=== PATIENT | female | born 1940 | race Caucasian/White ===

== ENCOUNTER 2017-09-19 12:37 | Outpatient (CLI) | payer MEDICARE, BC ==
--- NOTE | 2017-09-19 13:10 | RAD ---
LUMBAR SPINE FOUR VIEWS INCLUDING FLEXION AND EXTENSION LATERAL VIEWS: History: 77-year-old female with history of lumbar radiculopathy with low back pain and right sided leg pain. FINDINGS: Minimal levoscoliosis of the upper lumbar/lower thoracic vertebral column with significant multilevel disc osteophytosis and facet arthrosis. No significant abnormal translation between flexion and exte nsion. IMPRESSION: Extensive spondylosis. Very mild stable anterolisthesis of L4 on L5 without abnormal translation betw een flexion and extension. Bony demineralization. Levoscoliosis upper lumbar/lower thoracic vertebral column. POS: [facility]
--- NOTE | 2017-09-19 14:57 | MRI ---
MRI OF THE LUMBAR SPINE WITHOUT CONTRAST: Date: 09/19/17 COMPARISON: None. HISTORY: Low back pain with right lower extremity radiculopathy. TECHNIQUE: Multiplanar, multisequence MR imaging of the lumbar spine is provided without contrast. FINDINGS: The sagittal STIR imaging demonstrates no focal area of osseous marrow edema. There is increased T2 s ignal posterior to the facet joint on the left at L4-5, likely degenerative in nature. There is no significant anterolisthesis or retrolisthesis noted. Assuming five lumbar-type vertebral bodies, with the conus medullaris terminating at T12-L1. T12-L1: There is facet hypertrophy on the right with ligamentum flavum hypertrophy. Intervertebral disc heigh t and signal intensity is within normal limits with no significant central canal or neural foraminal stenosis. L1-2: Mild bilateral facet hypertrophy. Intervertebral disc height and signal intensity is within normal li mits with no significant central canal or neural foraminal stenosis. L2-3: Moderate bilateral facet hypertrophy. There is disc space narrowing, disc desiccation, and mild disc bulge. No significant central canal stenosis or neural foraminal stenosis. L3-4: Mild bilateral facet hypertrophy. There is disc space narrowing, disc desiccation, and disc bulge wit h a small foraminal disc protrusion on the left. There is no significant central canal or neural fora so stenosis. L4-5: Moderate bilateral facet hypertrophy and hypertrophy of the ligamentum flavum. There is disc space na rrowing and disc desiccation with disc bulge noted. There is a disc herniation in the right paracentr al region causing significant right lateral recess stenosis. There is moderate central canal stenosis . No significant neural foraminal stenosis. L5-S1: Mild bilateral facet hypertrophy. There is disc space narrowing, disc desiccation, and disc bulge. Th ere is mild neural foraminal stenosis on the left. There is no significant central canal or right janae ral foraminal stenosis. Imaged retroperitoneal structures appear grossly unremarkable. IMPRESSION: Multilevel degenerative change within the lumbar spine as detailed above. The most significant findin g is a right paracentral disc herniation at L4-5 with associated right lateral recess stenosis. POS: [facility]
== END 2017-09-19 12:38 | disposition home or self-care (01) ==
LOC: TBSIIMAG 12:37
PROVIDERS: ATTEND Surgery
DX: M47.26 Other spondylosis with radiculopathy, lumbar region (principal); M41.9 Scoliosis, unspecified; M43.16 Spondylolisthesis, lumbar region; M81.0 Age-related osteoporosis without current pathological fracture; M51.16 Intervertebral disc disorders with radiculopathy, lumbar region
CPT/HCPCS: 72110; 72148

== ENCOUNTER 2018-05-17 00:33 | Outpatient (CLI) | payer MEDICARE, BC ==
[2018-05-17 14:55] LABS: Hemoglobin 13.3 g/dL (12.0-16.0); Mean Corpuscular HGB CONC 32.3 g/dL (32.0-36.0); Mean Corpuscular Hemoglobin 29.9 pg (27.0-31.0); Mean Corpuscular Volume 92.6 fL (78.0-98.0); Mean Platelet Volume 6.4 fL (7.4-10.4); Platelet Count 252 thou/uL (130-400); RBC Distribution Width 11.4 % (11.5-14.5); Red Blood Cell (RBC) Count 4.46 mill/uL (4.20-5.40); White Blood Cell (WBC) Count 5.4 thou/uL (4.8-10.8)
[2018-05-17 15:00] LABS: PTT 32.6 SEC (22.9-36.1); Prothrombin Time 13.2 SEC (12.0-14.7)
[2018-05-17 15:20] LABS: Anion Gap 15 mmol/L (10-20); BUN (Urea Nitrogen) 18 mg/dL (9.8-20.1); Calc. Creatinine Clearance 0 mL/min (70-130); Calcium 9.3 mg/dL (7.8-10.44); Carbon Dioxide 21 mmol/L (23-31); Chloride 105 mmol/L (98-107); Estimated GFR-MDRD 66; Glucose 142 mg/dL (83-110); Potassium 3.9 mmol/L (3.5-5.1); Sodium 137 mmol/L (136-145)
--- NOTE | 2018-05-18 07:50 | EKG ---
Test Reason : Blood Pressure : / mmHG Vent. Rate : 070 BPM Atrial Rate : 070 BPM P-R Int : 138 ms QRS Dur : 076 ms QT Int : 396 ms P-R-T Axes : 060 043 036 degrees QTc Int : 427 ms Normal sinus rhythm Possible Left atrial enlargement ST abnormality, possible digitalis effect Abnormal ECG No previous ECGs available Confirmed by YOLA GARDINER ([id number]) on 05/18/2018 7:50:18 AM Referred By: FELISHA Confirmed By:YOLA GARDINER
== END 2018-05-17 00:34 | disposition home or self-care (01) ==
LOC: LABBT 00:33
PROVIDERS: ATTEND Surgery
DX: Z01.818 Encounter for other preprocedural examination (principal); M54.16 Radiculopathy, lumbar region; M48.061 Spinal stenosis, lumbar region without neurogenic claudication
CPT/HCPCS: 80048; 85027; 85610; 85730; 93005; 93010

== ENCOUNTER 2018-06-22 11:32 | Day surgery (SDC) | payer MEDICARE, BC ==
[2018-05-17 13:06] VITALS: BMI 21.8
[2018-06-22] MEDS ORDERED: Fentanyl 100 MCG/2 ML VIAL ONE ×4 (11:51→15:36)
[2018-06-22 12:01] LABS: #Basophils 0.1 thou/uL (0.0-0.2); #Eosinphils 0.3 thou/uL (0.0-0.7); #Lymphocytes 1.6 thou/uL (1.20-3.40); #Monocytes 0.6 thou/uL (0.11-0.59); #Neutrophils 3.2 thou/uL (1.40-6.50); %Basophils 1.1 % (0.0-1.0); %Eosinophils 5.3 % (0.0-10.0); %Lymphocytes 28.3 % (21.0-51.0); %Monocytes 9.7 % (0.0-10.0); %Neutrophils 55.7 % (42.0-75.0); Hemoglobin 13.5 g/dL (12.0-16.0); Mean Corpuscular HGB CONC 32.5 g/dL (32.0-36.0); Mean Corpuscular Hemoglobin 30.1 pg (27.0-31.0); Mean Corpuscular Volume 92.5 fL (78.0-98.0); Mean Platelet Volume 5.9 fL (7.4-10.4); Platelet Count 211 thou/uL (130-400); RBC Distribution Width 11.1 % (11.5-14.5); Red Blood Cell (RBC) Count 4.47 mill/uL (4.20-5.40); White Blood Cell (WBC) Count 5.7 thou/uL (4.8-10.8)
[2018-06-22 12:07] LABS: Prothrombin Time 13.1 SEC (12.0-14.7)
[2018-06-22 12:18] LABS: Anion Gap 11 mmol/L (10-20); BUN (Urea Nitrogen) 16 mg/dL (9.8-20.1); Calc. Creatinine Clearance 53 mL/min (70-130); Calcium 9.4 mg/dL (7.8-10.44); Carbon Dioxide 27 mmol/L (23-31); Chloride 105 mmol/L (98-107); Estimated GFR-MDRD 66; Glucose 93 mg/dL (83-110); Potassium 4.1 mmol/L (3.5-5.1); Sodium 139 mmol/L (136-145)
[2018-06-22] MEDS ORDERED: Bacitracin Zinc Ointment 30 gm TUBE ONE (12:36)
[2018-06-22] MEDS ORDERED: Sodium Chloride 0.9% 10 ML ONE (12:36)
[2018-06-22] MEDS ORDERED: Thrombin 5000 UNITS/5 ML VIAL ONE (12:36)
--- NOTE | 2018-06-22 12:43 | PRG ---
DATE OF SERVICE: 06/22/2018 SUBJECTIVE: Ms. Tafoya notified me this morning on the day before we took her back for surgery in addition to low back and right leg pain consistent with right L5 radiculopathy. She has started to now have left low back and left buttock pain. I reviewed her MRI again while she does have disk extrusion centered to the right at the right L4-L5 segment that was a surgical plan along. She does have one cut in which she has stenosis of the left L5 lateral recess from facet hypertrophy. Essentially, the change in the surgical plan therefore, which ideally would have been discussed at that time when her symptoms began, would be an L4-L5 laminectomy and right-sided diskectomy for decompression of bilateral L4 and bilateral L5 nerve roots. I discussed this with her without any sedation and she is in agreement with the plan. The goals, indications, risks, alternatives, and complications are essentially the exact same as frequently doing a right-sided approach. She wishes that we proceed. Job ID: [id number]
[2018-06-22] MEDS ORDERED: Promethazine HCl 25 MG/ML VIAL IM PRN ×2 (13:24→14:31)
[2018-06-22] MEDS ORDERED: HYDROmorphone 2 MG/ML VIAL SLOW IVP PRN (13:24)
[2018-06-22] MEDS ORDERED: Promethazine HCl 25 MG/ML VIAL SLOW IVP PRN (13:24)
[2018-06-22] MEDS ORDERED: Ondansetron HCl/PF 4 MG/2 ML Vial IVP PRN (13:24)
[2018-06-22] MEDS ORDERED: Meperidine HCl/PF 25 MG/ML VIAL SLOW IVP PRN (13:24)
[2018-06-22] MEDS ORDERED: tiZANidine HCl 4 MG TAB PO PRN (14:31)
[2018-06-22] MEDS ORDERED: Acetaminophen 325 MG TAB PO PRN (14:31)
[2018-06-22] MEDS ORDERED: Acetaminophen/Codeine 30-300mg Tablet PO PRN (14:31)
[2018-06-22] MEDS ORDERED: Bisacodyl 10 MG SUPP PR PRN (14:31)
[2018-06-22] MEDS ORDERED: HYDROcodone/Acetaminophen 7.5/325 mg Tablet PO PRN (14:31)
[2018-06-22] MEDS ORDERED: traMADol HCl 50 MG TAB PO PRN (14:31)
[2018-06-22] MEDS ORDERED: Mag-Al 1200 mg/1200 mg/30 ML UDCUP PO PRN (14:31)
[2018-06-22] MEDS ORDERED: Milk Of Magnesia 30 ML UDCUP PO PRN (14:31)
[2018-06-22] MEDS ORDERED: Polyethylene Glycol 3350 17 GM Packet PO PRN (14:37)
[2018-06-22] MEDS ORDERED: HYDROmorphone 2 MG/ML VIAL ONE (14:55)
[2018-06-22] MEDS ORDERED: IBANDRONATE SODIUM PO SCH (15:00)
[2018-06-22] MEDS ORDERED: Fleet Enema 133 ML BOT PR PRN (15:00)
[2018-06-22] MEDS: Calcium Carbonate 600 MG TAB PO SCH ×2 (16:50→21:39)
[2018-06-22] MEDS: Sodium Chloride 0.9% 1,000 ML IV SCH (17:18)
[2018-06-22] MEDS: Metoprolol Tartrate 50 MG TAB PO SCH (21:33)
[2018-06-23] MEDS: Sodium Chloride 0.9% 1,000 ML IV SCH (05:53)
[2018-06-23] MEDS ORDERED: Levothyroxine Sodium 100 MCG TAB PO SCH (06:00)
[2018-06-23 07:55] VITALS: BP 129/58; TEMP 98
[2018-06-23] MEDS: Metoprolol Tartrate 50 MG TAB PO SCH (08:56)
[2018-06-23] MEDS: Calcium Carbonate 600 MG TAB PO SCH (08:56)
--- NOTE | 2018-06-23 12:00 | PRG ---
DATE OF SERVICE: 06/23/2018 SUBJECTIVE: Ms. Tafoya is doing well with resolution in her leg pain postoperatively. Preoperatively, she endorsed that she had left-sided low back and buttock pain, as such I reviewed her MRI and recommended rather than just a right L4-L5 hemilaminotomy, foraminotomy, and diskectomy that we should decompress both sides and as such we did an L4-L5 laminectomy, partial facetectomy, and foraminotomy with a right L4-L5 diskectomy. She is doing well this morning with resolution of her leg pain. Just as we did before surgery in clinic, we again went over do's and don'ts in the postoperative period and the intraoperative course. She will be dismissed. All questions were answered. Neurologically, she was doing well and her dressing has remained intact. Job ID: [id number]
--- NOTE | 2018-06-23 16:19 | OP ---
DATE OF PROCEDURE: 06/22/2018 RETURN AGENT: Tomas Muñoz PA-C. PRE-PROCEDURE DIAGNOSES: Low back and right greater the left lower extremity pain with right L4-L5 disk extrusion and left L5 lateral recess stenosis. PROCEDURES PERFORMED: 1. L4-L5 laminectomy, partial facetectomy, and foraminotomy with right L4-L5 diskectomy. 2. Use of operative microscope for microdissection. I discussed the patient's new symptoms involving the left low back and left buttock and reviewed her MRI and recommended decompression of both the left and the right side as opposed to just the right side, which is what we had discussed in clinic before. She stated she has had the symptoms for six weeks, but had just revealed that to me right before surgery and as such, that is why I changed the surgical plan to incorporate decompression of both sides. DESCRIPTION OF PROCEDURE: After informed consent was obtained from the patient, the patient was brought to the OR. Proper patient, pause, and identification were carried out. The wound was then opened with a combination of sharp, monopolar, and blunt dissection. Following localization, sterilely and cleansing preparation and draping, and the L4-L5 segment was exposed bilaterally. Localization film confirmed our area of interest. We then performed L4-L5 laminectomy, partial facetectomy, and foraminotomy. Microscope was brought into the field and diskectomy at the right L4-L5 segment was performed with excellent decompression of right L4 and right L5 nerve roots. We then turned our attention to maximize decompression of left L4 and left L5 nerve roots. Copious irrigation occurred throughout as did maximizing hemostasis. The wound was then closed in anatomic layers following sprinkling of vancomycin powder. The patient emerged from anesthesia. Job ID: [id number]
== END 2018-06-23 10:59 | disposition home or self-care (01) ==
LOC: SDC 11:32 → 3SE 16:05 → SDC 06-23 10:59
PROVIDERS: ATTEND Surgery
PROC: 01NB0ZZ Release Lumbar Nerve, Open Approach (ICD-10-PCS; principal; 2018-06-22)
PROC: 0SB20ZZ Excision of Lumbar Vertebral Disc, Open Approach (ICD-10-PCS; 2018-06-22)
DX: M48.061 Spinal stenosis, lumbar region without neurogenic claudication (principal); M51.16 Intervertebral disc disorders with radiculopathy, lumbar region; Z79.82 Long term (current) use of aspirin; Z79.83 Long term (current) use of bisphosphonates; Z79.899 Other long term (current) drug therapy
CPT/HCPCS: 36415; 76000; 80048; 85025; 85610; 85730; J1170; J3010; J3370; J3490

== ENCOUNTER 2018-09-18 10:04 | Outpatient (CLI) | payer MEDICARE, BC ==
[~2018-09-18 10:04] MED LIST: Gadobenate Dimeglumine 529 MG/1 ML (20ML VIAL) ONE
--- NOTE | 2018-09-18 11:10 | RAD ---
EXAM: XR Lumbar Spine Bending Min 4V PROVIDED CLINICAL HISTORY: Low back pain with pain radiating down left hip since history of prior surgery May 2018. COMPARISON: 09/19/2017. FINDINGS: There are 5 nonrib-bearing lumbar-type vertebral bodies. There is evidence of a laminectomy defect at the L4-5 level. The vertebral body heights are within normal limits. Again noted is slight grade 1 anterolisthesis of L4 on L5. The degree of listhesis is difficult to measure on the extension view du e to overlying structures, but no definitive abnormal translational motion is present at this level. No additional levels of subluxation are seen. Scattered degenerative changes are seen througho ut the lumbar spine with narrowing of the intervertebral disc spaces at all levels. Scattered osteophytes are present. There are facet hypertrophic changes seen greater in the lower lumbar spine. There is mild left convex curvature of the thoracolumbar spine. Vascular calcifications are seen in the upper abdomen as well as involving the abdominal aorta. IMPRESSION: 1. Multilevel degenerative changes with stable slight grade 1 anterolisthesis of L4 on L5. 2. Postoperative changes related to laminectomy defect at L4-5 level.
--- NOTE | 2018-09-18 15:43 | MRI ---
EXAM: MRI lumbar spine without and with contrast HISTORY: Back pain COMPARISON: None TECHNIQUE: Multiple planar multisequence MR images were obtained of the lumbar spine without and with contrast. FINDINGS: The vertebral bodies demonstrate normal height and alignment without fracture or subluxation. The int ervertebral discs are narrowed and desiccated. Endplate degenerative changes are seen surrounding L4/5. Bilateral laminectomies at performed at L5. There is a fluid collection in the operative bed measurin g 2.5 x 2.3 x 2.5 cm in size which represents a seroma. Enhancement is seen in the paraspinal soft tissues surrounding the fluid collection and extending towards the back incision. There are also appe ars to be a separate fluid collection in the subcutaneous tissues measuring 1.3 cm in width. The conus medullaris terminates normally at T12/L1. Enhancement is seen of the endplates at L4/5. There is also enhancement in the epidural soft tissues at L4/5 slightly more prominent to the right of midline and with enhancement surrounding the bilateral nerve roots, right greater than left. The prevertebral soft tissues are unremarkable. T12/L1: No significant posterior bulge or protrusion. No posterior facet arthrosis. No central lashawn l stenosis. No neural foraminal stenosis L1/2: No significant posterior bulge or protrusion. No posterior facet arthrosis. No central canal stenosis. No neural foraminal stenosis L2/3: A small disc osteophyte complex is seen. Mild bilateral posterior facet arthrosis. No central canal stenosis. Moderate right and mild left neural foraminal stenosis L3/4: A small disc osteophyte complex is seen. No posterior facet arthrosis. Mild central canal farhad nosis. Mild to moderate bilateral neural foraminal stenosis L4/5: A small discussed by complex is seen. Mild bilateral posterior facet arthrosis. No central ca nal stenosis. Mild bilateral neural foraminal stenosis with enhancement surrounding both nerve roots, right greater than left. L5/S1: A small disc osteophyte complex is seen. No posterior facet arthrosis. No central canal sten osis. Mild bilateral neural foraminal stenosis IMPRESSION: 1. Postoperative changes of the lumbar spine as above with fluid collections in the operative bed 2. Degenerative changes of the lumbar spine as above.
== END 2018-09-18 10:05 | disposition home or self-care (01) ==
LOC: SCSMRI 10:04
PROVIDERS: ATTEND Physician Assistant Surgical
DX: M54.5 Low back pain (principal); M47.816 Spondylosis without myelopathy or radiculopathy, lumbar region; M43.16 Spondylolisthesis, lumbar region; Z98.890 Other specified postprocedural states
CPT/HCPCS: 72120; 72158; 82565; A9577

== ENCOUNTER 2018-11-10 08:16 | Outpatient (CLI) | payer MEDICARE, BC ==
--- NOTE | 2018-11-10 11:28 | MRI ---
MRI BRAIN WITH AND WITHOUT CONTRAST: Multiplanar, multisequential imaging obtained. Postcontrast images obtained administering IV MultiHa nce. INDICATION: Numbness, tingling right side. Question CVA. COMPARISON: There are no comparison studies. FINDINGS: Ventricles have normal size and position. No evidence of restricted diffusion. There is no evidence of mass or edema. Moderately severe chronic ischemic white matter changes are seen in both cerebral hemispheres. There is no evidence of hemorrhage. No abnormal enhancement identified. Intracranial internal carotid arteries and cerebral arteries show expected flow voids. The dural christina ous sinuses appear patent. Paranasal sinuses show mild mucosal edema in the left maxillary sinus. Mastoids appear clear. IMPRESSION: 1. Moderate chronic ischemic white matter changes seen in both cerebral hemispheres. 2. No evidence of infarct or other acute process. POS: [facility]
== END 2018-11-10 08:17 | disposition home or self-care (01) ==
LOC: MRI 08:16
PROVIDERS: ATTEND Family Medicine
DX: I63.9 Cerebral infarction, unspecified (principal)
CPT/HCPCS: 70553